=== PATIENT | male | born 1960 | race Caucasian/White ===

== ENCOUNTER → 2024-09-12 | Outpatient (CLI) | payer BC, SELFPAY ==
[2024-09-12 08:44] LABS: Prostate Specific Antigen 1.51 ng/mL (0-4.00)
== END | disposition home or self-care (01) ==
LOC: COPL 06:47
PROVIDERS: Referring Provider Urology; Visit Provider Urology
DX: N40.1 Benign prostatic hyperplasia with lower urinary tract symptoms (principal)
CPT/HCPCS: 36415; 84153

== ENCOUNTER → 2024-09-19 | Outpatient (BNVA) | payer BC, SELFPAY | END | disposition home or self-care (01) | PROVIDERS: PCP Family Medicine; Referring Provider Family Medicine; Visit Provider Urology | DX: N40.1 Benign prostatic hyperplasia with lower urinary tract symptoms (principal); N13.8 Other obstructive and reflux uropathy; N52.9 Male erectile dysfunction, unspecified | CPT/HCPCS: 81003; 99212; G0463 ==